=== PATIENT | female | born 1935 | race African-American/Black ===

== ENCOUNTER 2016-04-03 13:59 | Emergency (ER) | payer OTHER, MEDICARE ==
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
[2016-04-03] MEDS ORDERED: IBUPROFEN 800 MG TABLET PO ONE (15:53)
[2016-04-03 16:12] VITALS: BP 133/62
== END 2016-04-03 15:58 | disposition home or self-care (01) ==
LOC: ER 13:59
DX: R51 Headache (principal); M54.2 Cervicalgia; V89.2XXA Person injured in unspecified motor-vehicle accident, traffic, initial encounter; I10 Essential (primary) hypertension; E11.9 Type 2 diabetes mellitus without complications; Z86.73 Personal history of transient ischemic attack (TIA), and cerebral infarction without residual deficits
CPT/HCPCS: 70450; 72125; 99284

== ENCOUNTER 2016-04-06 15:17 | Emergency (ER) | payer OTHER, MEDICARE ==
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
[2016-04-06] MEDS ORDERED: ONDANSETRON ODT 4 MG TAB (6 TAB/DSPK) PO PRN (16:54)
[2016-04-06] MEDS ORDERED: PROCHLORPERAZINE MALEATE 5 MG TABLET PO ONE (16:54)
[2016-04-06] MEDS ORDERED: LIDOCAINE 5% (700 MG) TRANSDERMAL ADH..PATCH TP ONE (16:54)
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
[2016-04-06 17:34] VITALS: BP 152/66
== END 2016-04-06 17:34 | disposition home or self-care (01) ==
LOC: ER 15:17
DX: R51 Headache (principal); M54.2 Cervicalgia; V49.50XA Passenger injured in collision with unspecified motor vehicles in traffic accident, initial encounter; I10 Essential (primary) hypertension; E11.9 Type 2 diabetes mellitus without complications; Z86.79 Personal history of other diseases of the circulatory system
CPT/HCPCS: 99284; 70450; S0183